=== PATIENT | male | born 1990 | race Native Hawaiian/Other Pacific Islander ===

== ENCOUNTER 2018-08-12 13:50 | Emergency (ER) | payer OTHER ==
[2018-08-12] MEDS ORDERED: BOOSTRIX IM ONE (14:01)
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
[2018-08-12 21:06] VITALS: BP 123/63
== END 2018-08-12 14:19 | disposition home or self-care (01) ==
LOC: ED 13:50
DX: S91.332A Puncture wound without foreign body, left foot, initial encounter (principal); S91.331A Puncture wound without foreign body, right foot, initial encounter; J45.909 Unspecified asthma, uncomplicated; F17.200 Nicotine dependence, unspecified, uncomplicated; W45.0XXA Nail entering through skin, initial encounter; Y93.89 Activity, other specified; Y92.69 Other specified industrial and construction area as the place of occurrence of the external cause; Y99.8 Other external cause status
CPT/HCPCS: 90471; 90715